=== PATIENT | female | born 1990 | race Caucasian/White ===

== ENCOUNTER 2017-04-01 11:53 | Outpatient (CLI) | payer OTHER ==
[2017-04-01 13:07] LABS: BASOPHILS % 0.8 (0.0-1.5); EOSINOPHILS % 1.3 % (0.0-6.8); MEAN CORPUSCULAR HEMOGLOBIN 31.8 pg (28.0-34.0); MEAN CORPUSCULAR VOLUME 94.1 fl (80.0-100.0); NEUTROPHILS # 3.2 # k/uL (1.4-7.7)
[2017-04-01 13:34] LABS: eGFR (African) > 60; eGFR (Non-African) > 60
--- NOTE | 2017-04-01 16:41 | CONSULTATION REPORT ---
CONSULTING PHYSICIAN: Dr. Pedro Pablo Laurent HISTORY OF PRESENT ILLNESS: Aylin Hong is a 27-year-old white woman who has had some joint achiness for maybe 4 to 5 years, but in the past few months, things have gotten worse. In October of 2016, she developed severe dry eyes. She has required constant eye drops. She has been under the care of an thermal cutter hand. She had a history of migraines which were quiescent for quite a few years but in February, she developed new migraines. She describes it as coming from the posterior neck and recurring quite severe. On one occasion, she had numbness going down the left arm. Her neck continues to be stiff. She has generalized body aches of the hips, neck, back and at times her skin appears sensitive, mainly in the upper arms. She has had problems with recurrent vaginal infections, which have been quite resistant to treatment. She has had no other infections. OBSTETRICAL HISTORY: She has had 2 pregnancies. Both children are doing well. She has no history of miscarriages. PRESENT MEDICATIONS: 1. Metronidazole Vaginal Gel. 2. A probiotic. ALLERGIES: She reports intolerance to hydrocodone, codeine, and tramadol which gives her dry heaves. SOCIAL HISTORY: She is . She works as a boiler or engine operator. She does not smoke or drink. No drugs. She exercises regularly with [employer] and [employer] machine. FAMILY HISTORY: Her sister has rheumatoid arthritis, as well as her father. REVIEW OF SYSTEMS: A 5 to 8 pound weight gain and some fatigue. She has some dry painful eyes. Problems with constipation, vaginal discharge, and easy bruising. She has had 2 episodes of hives which remain unexplained. She has had some hair loss. She has the headaches as described above. Some dizziness and hands sensitivity. Otherwise, no weakness and no fevers. No loss of vision or no red eyes. No mouth sores. No dry mouth. No difficulty swallowing. No loss of smell. No loss of hearing. She has had no chest pain or palpitations. No issues of high blood pressure. No heart murmurs. No shortness of breath. No swelling of the legs, coughing or wheezing. No nausea or vomiting. No diarrhea. No dark stools or bloody stools. She denies any problems with anxiety or depression. No swollen or tender lymph nodes. PHYSICAL EXAMINATION: GENERAL: She looks well. VITAL SIGNS: Height: 5 feet 3 inches. Weight: 140. T: 98, P: 59, R: 20, BP : 128/68. HEENT: Sclerae are anicteric. Conjunctivae are pink. No stomatitis or glossitis. No alopecia. No mal or rash. External ears and nose are unremarkable. Dentition is good. She has good salivary pool. She has no parotid or submandibular swelling. No thyroid enlargement. There were no cervical or supraclavicular lymph nodes. LUNGS: Clear bilaterally with no crackles or wheezing. HEART: Regular rhythm. ABDOMEN: Soft and nontender. No hepatic or splenic enlargement. VASCULAR: No edema. No cyanosis. SKIN: No rashes. NAILS: No pitting. No erythema. No periungual lesions. JOINTS: No significant tenderness at the DIPs, PIPs, MCPs, wrists, elbows, shoulders, hips, knees, ankles, and feet. IMPRESSION: 1. Polyarthralgia. 2. Hives. 3. Neck pain. 4. Dry eyes. PLAN: I am concerned for connective tissue disorder given the patient's symptoms and a strong family history. We will obtain [facility] testing. We will check a CBC, CMP, sedimentation rate, CRP, and quantitative immunoglobulins, and I will see her back in 4 weeks. Thank you very much. Best regards, [email or web address]
== END 2017-04-01 12:00 ==
LOC: RHEU 11:53
PROVIDERS: ATTEND Internal Medicine
DX: M25.50 Pain in unspecified joint (principal); M54.2 Cervicalgia
CPT/HCPCS: 36415; 80053; 82784; 85025; 85651; 86140; 99213